=== PATIENT | female | born 1995 | race African-American/Black ===

== ENCOUNTER → 2021-07-02 | Outpatient (CLI) | payer BC, OTHER ==
--- NOTE | 2021-07-02 15:47 | RAD ---
EXAM: Pelvic sonogram. HISTORY: Pain. TECHNIQUE: Transabdominal and transvaginal sonographic imaging of the pelvis was performed. COMPARISON: None. FINDINGS: The uterus measures 9.4 x 5.3 x 3.8 cm. The endometrial stripe measures 2.4 mm in thickness . The ovaries are normal in size and demonstrate normal blood flow. There are multiple bilateral ovar margaret follicles. The largest follicle is seen on the right measuring 1.3 cm. There are multiple follicl es in a peripheral distribution. There is no pelvic free fluid. IMPRESSION: 1. Multiple ovarian follicles, several which are in a peripheral distribution. This is not clearly wi thin limits to suggest polycystic ovary syndrome. There is a physiologic dominant right ovarian folli vanessa measuring 1.3 cm. 2. Thin endometrial stripe. Electronically signed by: Stefani Guerra MD (07/02/2021 3:44 PM) [id number]
== END ==
LOC: US 14:20
PROVIDERS: ATTEND Family Medicine
DX: N83.01 Follicular cyst of right ovary (principal); N83.02 Follicular cyst of left ovary; R50.9 Fever, unspecified; R10.9 Unspecified abdominal pain; R30.0 Dysuria
CPT/HCPCS: 76830; 76856